=== PATIENT | male | born 1990 | race Caucasian/White ===

== ENCOUNTER 2020-02-09 13:00 | Emergency (ER) | payer MEDICAID ==
[~2020-02-09] VITALS: Ht 188 cm; Wt 82.0 kg
[2020-02-09 13:55] LABS: BASOPHILS # (AUTO) 0.03 x10^3/uL (0-0.1); BASOPHILS % (AUTO) 0 % (0-1); EOSINOPHILS # (AUTO) 0.02 x10^3/uL (0-0.4); EOSINOPHILS % (AUTO) 0 % (1-7); LYMPHOCYTES % (AUTO) 17 % (22-44); MD NO; MEAN CORPUSCULAR HEMOGLOBIN 29.5 pg (27.5-34.5); MEAN CORPUSCULAR HGB CONC 32.1 g/dL (33.2-36.2); MEAN CORPUSCULAR VOLUME 91.9 fL (81-97); MEAN PLATELET VOLUME 7.1 fL (7.4-10.4); MONOCYTES # (AUTO) 0.49 x10^3/uL (0.2-0.8); MONOCYTES % (AUTO) 7 % (2-9); NEUTROPHILS # (AUTO) 5.31 x10^3/uL (1.8-6.8); NEUTROPHILS % (AUTO) 75 % (42-75); PLATELET COUNT 369 x10^3/uL (130-400); RED BLOOD COUNT 4.99 x10^6/uL (4.38-5.82)
[2020-02-09 14:00] LABS: ALBUMIN 4.3 g/dL (3.4-5.0); ANION GAP 6 mmol/L (5-15); CALCIUM 9.7 mg/dL (8.5-10.1); CHLORIDE 107 mmol/L (98-107)
[2020-02-09 14:02] LABS: SALICYLATE LEVEL < 1.7 mg/dL (2.8-20.0)
--- NOTE | 2020-02-09 14:31 | NUR ---
PT PLACED IN HOSPITAL GOWN, VITALS MONITORS PLACED ON PT WITH HELP OF SECURITY. PT UNCOOPERATIVE AND CONFUSED. PT RESTRAINED AT THIS TIME. WILL CONTINUE TO MONITOR.
--- NOTE | 2020-02-09 15:00 | NUR ---
PSYCH CORRECTIONS NURSE IN TO SEE PT.
[2020-02-09] MEDS ORDERED: HALOPERIDOL 5 MG/ML IM PRN (15:30)
[2020-02-09] MEDS ORDERED: HALOPERIDOL 5 MG TABLET PO ONE (15:30)
[2020-02-09] MEDS ORDERED: LORazepam 1MG TABLET PO ONE (15:30)
[2020-02-09] MEDS ORDERED: METHOCARBAMOL 500 MG TABLET PO PRN (15:30)
[2020-02-09] MEDS ORDERED: LORazepam 1MG TABLET ONE (15:40)
[2020-02-09] MEDS ORDERED: HALOPERIDOL 5 MG TABLET ONE (15:41)
[2020-02-09] MEDS ORDERED: HALOPERIDOL 5 MG/ML ONE (15:51)
--- NOTE | 2020-02-09 16:10 | NUR ---
PT CONTINUES TO BE CONFUSED, REMOVING VITALS MONITORS AND BARING TEETH AT STAFF. PT MEDICATED WITH ASSIST OF SECURITY. PT REFUSED ORAL PILLS. PER [employer] SITE MANAGER, OKAY TO GIVE MED IM.
--- NOTE | 2020-02-09 16:55 | NUR ---
PT CURRENTLY THROWING BLANKET AROUND, HAS REMOVED GOWN, YELLING AT STAFF AND DEMANDING FOOD. WILL CALL PSYCH GAMING DEPARTMENT HEAD FOR ORDERS.
--- NOTE | 2020-02-09 17:20 | NUR ---
PT CONTINUES TO YELL AT STAFF, PSYCH STEEL RIGGER CALLED, ORDERS GIVEN TO HELP CALM PT DOWN. NEW ORDER FOR RESTRAINTS OBTAINED. FIRST GIVEN MED DID NOT HELP PT TO RELAX. WILL MEDICATE PER ORDERS TO ASSIST PT IN CALMING DOWN.
[2020-02-09] MEDS ORDERED: DIPHENHYDRAMINE 50 MG/ML, 1ML IM PRN (17:30)
[2020-02-09] MEDS ORDERED: OLANZAPINE 10 MG INJ IM PRN ×2 (17:30)
[2020-02-09] MEDS ORDERED: LORazepam 2 MG/ML, 1ML IM PRN (17:30)
[2020-02-09] MEDS ORDERED: LORazepam 2 MG/ML, 1ML ONE (17:31)
--- NOTE | 2020-02-09 18:00 | NUR ---
PT OUT OF RESTRAINTS, GIVEN WATER. PT STATED HE WILL STAY IN ROOM. PT REPOSITIONED FOR COMFORT. PT COOPERATIVE AT THIS TIME. PT WAS TEARFUL AFTER GIVEN MEDS, STATED ALL HE THINKS ABOUT IS GETTING DRUGS. PT REASSURED HE IS IN A SAFE PLACE AND STAFF IS HERE TO HELP. PT THANKFUL, WILL CONTINUE TO MONITOR.
--- NOTE | 2020-02-09 18:11 | NUR ---
DINNER TRAY ORDERED FOR PT.
--- NOTE | 2020-02-09 18:30 | NUR ---
PT HAS REMOVED BP CUFF. O2 SAT REMAINS IN PLACE. PT RESTING CALMLY IN BED AT THIS TIME.
--- NOTE | 2020-02-09 19:25 | NUR ---
PT RESTING ON GURNEY, RESP EVEN AND UNLABORED. PT ENCOURAGED TO PROVIDE URINE SAMPLE. FOOD TRAY AT BEDSIDE, SITTER IN DIRECT LINE OF SIGHT.
--- NOTE | 2020-02-10 00:40 | NUR ---
PT RESTING IN ROOM, SITTER IN DIRECT LINE OF SIGHT. RESP EVEN AND UNLABORED.
--- NOTE | 2020-02-10 01:52 | NUR ---
PT RESTING ON GURNEY, MONITORS IN PLACE. PT RESP EVEN AND UNLABORED. SITTER IN DIRECT LINE OF SIGHT. WILL CONTINUE TO MONITOR.
--- NOTE | 2020-02-10 05:59 | NUR ---
PT RESTING ON GURNEY, MONITORS IN PLACE. PT RESP EVEN AND UNLABORED. TRAY ORDERED FOR PT. SITTER IN DIRECT LINE OF SIGHT. WILL CONTINUE TO MONITOR.
--- NOTE | 2020-02-10 07:04 | NUR ---
Recieved bedside report from JC Sousa. All questions answered. Patient asleep on right lateral side with unlabored respirations with even chest rise and fall. Patient remains on SPO2 % monitor. JESSE. Sitter near doorway in direct line of sight for observation. Room secured for HI/SI.
--- NOTE | 2020-02-10 07:13 | NUR ---
PO Ativan non-administration of medication due to duplicate orders and patient current condition. Patient asleep on gurney with eyes closed. Pt has unlabored respirations with even chest rise and fall. Pt remains on SPO2% monitor.
[2020-02-10 07:53] VITALS: BP 113/79
[2020-02-10 07:55] LABS: AMPHETAMINE SCREEN, URINE Positive (Negative); BARBITURATE SCREEN, URINE Negative (Negative); BENZODIAZEPINE SCREEN, URINE Negative (Negative); CANNABINOID SCREEN, URINE Negative (Negative); COCAINE SCREEN, URINE Negative (Negative); METHADONE SCREEN, URINE Negative (Negative); OPIATE SCREEN, URINE Positive (Negative)
--- NOTE | 2020-02-10 07:59 | NUR ---
PATIENT RECEIVED BREAKFAST TRAYS. PT APPRECIATIVE. NAND AT THIS TIME. PT ALERT AND ORIENTED X 4 SITTING ON GURNEY IN ROOM SECURED FOR SI/HI. SITTER IN DIRECT LINE OF SIGHT FOR OBSERVATION. NO OTHER NEEDS EXPRESSED AT THIS TIME.
--- NOTE | 2020-02-10 08:42 | NUR ---
Pt resting on gurney. NADN. No needs expressed. Pt has unlabored respirations with even chest rise and fall. Room remains secured for SI/HI. Sitter in direct line of sight for observaiton.
--- NOTE | 2020-02-10 10:24 | NUR ---
PT RESTING ON GURNEY ON STOMACH ASLEEP. UNLABORED RESPIRATIONS WITH EVEN RISE AND FALL OBSERVED. NO NEEDS EXPRESSED AT THIS TIME. SITTER NEAR DOORWAY IN DIRECT LINE OF SIGHT FOR OBSERVATION. ROOM REMAINS SECURED FOR SI/HI.
--- NOTE | 2020-02-10 10:59 | NUR ---
Father bob - [phone] would like call regarding patients status
--- NOTE | 2020-02-10 11:58 | NUR ---
break rn- meal provided, safety precautions in place
--- NOTE | 2020-02-10 12:24 | NUR ---
Attempted to call to give report to [facility]. Notified nurse is at lunch and will call back.
--- NOTE | 2020-02-10 13:10 | NUR ---
Provided report to JC Koehler at [facility]. All questions answered. Pt ready to transfer from ED to U at 1400 per [facility] request.
--- NOTE | 2020-02-10 14:18 | NUR ---
PT TRANSFERED TO FLOOR FROM ED IN WHEELCHAIR WITH TWO ED TECHS AND ALL PERSONAL BELONGINGS TO [facility].
== END 2020-02-10 14:20 ==
LOC: ED 15:30
DX: R45.851 Suicidal ideations (principal); F15.10 Other stimulant abuse, uncomplicated; F17.200 Nicotine dependence, unspecified, uncomplicated
CPT/HCPCS: 36415; 80048; 80307; 82040; 85025; 96372; 99285; J1630; J2060

== ENCOUNTER 2020-02-10 12:23 | Inpatient (IN) | payer MEDICAID ==
[~2020-02-10] VITALS: Ht 185.4 cm; Wt 79.5 kg
[2020-02-10] MEDS ORDERED: DOCUSATE 100 MG CAPSULE PO PRN (13:00)
[2020-02-10] MEDS ORDERED: ONDANSETRON ODT 4 MG PO PRN (13:00)
[2020-02-10] MEDS ORDERED: POLYETHYLENE GLYCOL 17 GM PACKET PO PRN (13:00)
[2020-02-10] MEDS ORDERED: BISACODYL 10 MG SUPP PR PRN (13:00)
[2020-02-10] MEDS ORDERED: ACETAMINOPHEN 325 MG TABLET PO PRN (13:00)
[2020-02-10] MEDS ORDERED: PLEASE ENTER HEIGHT AND WEIGHT MC SCH (14:30)
[2020-02-10 14:49] VITALS: BP 119/75
[2020-02-10 18:43] LABS: MICROSCOPIC INDICATED
[2020-02-10 19:01] VITALS: BP 118/74
[2020-02-11 07:00] VITALS: BP 108/69
[2020-02-11] MEDS: HALOPERIDOL 5 MG/ML IM PRN (08:55)
[2020-02-11] MEDS: DIPHENHYDRAMINE 50 MG/ML, 1ML IM PRN (08:56)
[2020-02-11] MEDS: LORazepam 2 MG/ML, 1ML IM PRN (08:56)
[2020-02-11] MEDS ORDERED: DIVALPROEX 500 MG TABLET.DR ONE (12:47)
[2020-02-11] MEDS ORDERED: OLANZAPINE 5 MG TABLET PO ONE (13:00)
[2020-02-11] MEDS ORDERED: DIVALPROEX 500 MG TABLET.DR PO ONE (13:00)
[2020-02-11] MEDS: DIVALPROEX 500 MG TABLET.DR PO SCH (19:58)
[2020-02-11] MEDS: OLANZAPINE 5 MG TABLET PO SCH (19:59)
[2020-02-12 07:22] VITALS: BP 110/78
[2020-02-12] MEDS: HALOPERIDOL 5 MG/ML IM PRN (08:10)
[2020-02-12] MEDS: LORazepam 2 MG/ML, 1ML IM PRN (08:10)
[2020-02-12] MEDS: DIPHENHYDRAMINE 50 MG/ML, 1ML IM PRN (08:10)
[2020-02-12] MEDS: OLANZAPINE 5 MG TABLET PO SCH (09:00)
[2020-02-12] MEDS: DIVALPROEX 500 MG TABLET.DR PO SCH (09:00)
== END 2020-02-12 09:45 | disposition home or self-care (01) | DRG 773 ==
LOC: 3E 14:23
PROVIDERS: ADMIT Psychiatry & Neurology Psychosomatic Medicine; ATTEND Family Medicine
DX: F15.250 Other stimulant dependence with stimulant-induced psychotic disorder with delusions (principal); F11.20 Opioid dependence, uncomplicated; F15.229 Other stimulant dependence with intoxication, unspecified; R45.851 Suicidal ideations; F10.10 Alcohol abuse, uncomplicated; R59.0 Localized enlarged lymph nodes; F17.210 Nicotine dependence, cigarettes, uncomplicated
CPT/HCPCS: 71045; 81001; 99285; J1200; J1630; J2060